=== PATIENT | female | born 1960 | race Caucasian/White ===

== ENCOUNTER 2025-03-31 12:29 | Outpatient (RCR) | payer MEDICARE, SELFPAY | END 2025-04-29 23:59 | disposition home or self-care (01) | LOC: SPT 12:29 | PROVIDERS: PCP Family Medicine; Visit Provider Family Medicine | DX: M25.551 Pain in right hip (principal); M25.552 Pain in left hip; G89.29 Other chronic pain | CPT/HCPCS: 97110; 97161 ==